=== PATIENT | male | born 1995 ===

== ENCOUNTER 2021-08-15 06:28 | Emergency (ER) | payer OTHER, SELFPAY ==
--- OUTSIDE RECORDS SUMMARY | 2021-08-15 06:31 | XMS REPORT | Continuity of Care Document ---
:1995 Author Organization [facility] t Address 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 Unknown Attending Clinician Unavailable DR CRISPIN Admitting Clinician Unavailable Payers Payer Name Policy Type Policy Number Effective Date Expiration Date Maureen CHÁVEZ II [id number] 2019 00:00:00 Problems Condition Condition Condition Status Onset Resolution Last Treating Co mments Source Name Details Category Date Date Treatment Clinician Date Acute Acute Disease Active 2020-0 Univers nonintract nonintract 2-08 it y of able able 00:00: [place] headache, headache, 00 Medi fareed unspecifie unspecifie Br anch d headache d headache type type Renal Renal Disease Active 2020-0 Univers disease disease 2-08 ity of 00:00: [address] Branch Snoring Snoring Disease Active 2020-0 Univers 2-08 ity of 00:00: [address] Branch Essential Essential Disease Active 2020-0 Uni vers hypertensi hypertensi 2-08 it y of on on 00:00: [place] [address] Medical Branch Morbid Morbid Disease Active 2020-0 Univers obesity obesity 2-08 ity of with BMI with BMI 00:00: [place] of of 00 Medical 40.0-44.9, 40.0-44.9, Br anch adult adult Elevated Elevated Disease Active 2020-0 Unive rs LFTs LFTs 2-08 ity of 00:00: [address] No known No known Disease Unive rs active active ity of problems problems [facility] Allergies, Adverse Reactions, Alerts Allergy Allergy Status Severity Reaction(s) Onset Inactive Treating Comm ents Source Name Type Date Date Clinician NO KNOWN Drug Active Univers ALLERGIE Class ity of S [facility] Social History Social Habit Start Date Stop Date Quantity Comments Source History [facility] [place] Alcohol Std Drinks Medica l Branch History [facility] [place] Alcohol Binge Medical Bra [facility] Sex Assigned [facility] Branch Alcohol intake 2019-11-05 2019-11-05 [facility] 00:00:00 00:00:00 Medical Branch History [facility] 2019-11-02 2019-11-02 1 [place] o f [place] Alcohol Frequency 00:00:00 00:00:00 Medical Branch Smoking Status Start Date Stop Date Source Unknown if ever smoked [facility] Never smoker [facility] Medications Ordered Filled Start Stop Current Ordering Indication Dosage Frequency Signature Comments Components Source Medication Medication Date Date Medication? Clinician (SIG) Name Name ketorolac 2019- No 30mg 30 mg, Unive rs (TORADOL) 12-02 Slow IV ity of injection 18:00: 17:04 Push, [place] 30 mg 00 :00 ONCE, 1 Medical dose, Sat Branch 12/03/19 at 1200, FAIZA
Fa culty member approving Restricted medication : Jose STILL ibuprofen 2019- Yes [id number] 600mg Take 1 U nivers 600 mg 12-02 tablet by ity of tablet 00:00: mouth [place] 00 every 6 Medical (six) Branch hours as needed for Pain (scale 4-6). cephALEXin 2020- No [id number] 500mg Take 1 Univers (KEFLEX) 12-02 [id number] capsule by it y of 500 mg 00:00: 04:59 mouth 3 [place] capsule 00 :00 (three) Medical times Branch daily for 10 days. amLODIPine 2020-0 Yes [id number] Start 1/2 Univers 10 mg 2-07 tab PO ity of tablet 00:00: daily x 1 [place] 00 week. Medical Increase Branch to 1 tab PO daily if persistent ly elevated > 130/80. amLODIPine 2020-0 Yes [id number] Start 1/2 Univers 10 mg 2-07 tab PO ity of tablet 00:00: daily x 1 [place] 00 week. Medical Increase Branch to 1 tab PO daily if persistent ly elevated > 130/80. amLODIPine Yes [id number] Start 1/2 Univers 10 mg 2-07 tab PO ity of tablet 00:00: daily x 1 [place] 00 week. Medical Increase Branch to 1 tab PO daily if persistent ly elevated > 130/80. amLODIPine Yes [id number] Start 1/2 Univers 10 mg 2-07 tab PO ity of tablet 00:00: daily x 1 [place] 00 week. Medical Increase Branch to 1 tab PO daily if persistent ly elevated > 130/80. ketorolac 2020- No [id number] 60mg Uni vers (TORADOL) 11-03 ity of injection 00:30: 00:40 [place] 60 mg 00 :00 [facility] ketorolac 2019- No [id number] 60mg 60 mg, U nivers (TORADOL) 11-03 Intramuscu ity of injection 00:30: 00:40 lar, ONCE, [place] 60 mg 00 :00 1 dose, Medical 11/02/19 Branch at 1845, Routine
family member caretaker approving Restricted medication : SEBASTIAN STARR No known No [facility] Immun[facility] Ordered Filled Immunization Date Status Comments [facility] e Immunization Name Name Influenza Virus 2019-07-05 Completed Universit y of Vaccine 00:00:00 [facility] Influenza Virus 2019-07-05 Completed Universit y of Vaccine 00:00:00 [facility] Influenza Virus 2019-07-05 Completed Universit y of Vaccine 00:00:00 [facility] Influenza Virus 2019-07-05 Completed Universit y of Vaccine 00:00:00 [facility] Vital Signs Vital Name Observation Time Observation Value Comments Source Heart rate 2019-12-03 16:05:00 90 /min [facility] Body temperature 2019-12-03 16:05:00 37.06 Aleja [facility] Respiratory rate 2019-12-03 16:05:00 18 /min [facility] Body height 2019-12-03 16:05:00 165.1 cm [facility] Body weight 2019-12-03 16:05:00 99.791 kg [facility] BMI 2019-12-03 16:05:00 36.61 kg/m2 [facility] Oxygen saturation in 2019-12-03 16:05:00 99 /min University of Arterial blood by [facility] fareed Pulse oximetry Branch Systolic blood 2019-12-03 16:05:00 153 mm[Hg] Univer sity of pressure [place] [facility] Diastolic blood 2019-12-03 16:05:00 111 mm[Hg] Unive rsity of pressure [facility] Branch Systolic blood 2019-11-06 02:02:00 160 mm[Hg] Univer sity of pressure [facility] Branch Diastolic blood 2019-11-06 02:02:00 100 mm[Hg] Unive rsity of pressure [facility] Branch Heart rate 2019-11-04 19:29:00 90 /min Universi ty of [facility] Body temperature 2019-11-04 19:29:00 36.78 Aleja Univ ersity of [facility] Body height 2019-11-04 19:29:00 162.6 cm Universi ty of [place] [facility] [place] Body weight 2019-11-04 19:29:00 106.595 kg Universi ty of [facility] BMI 2019-11-04 19:29:00 40.34 kg/m2 Universi ty of [place] [facility] Oxygen saturation in 2019-11-04 19:29:00 96 /min University of Arterial blood by [facility] Pulse oximetry Branch Systolic blood 2019-11-03 00:13:00 170 mm[Hg] Univer sity of pressure [facility] Diastolic blood 2019-11-03 00:13:00 102 mm[Hg] Unive rsity of pressure [facility] Heart rate 2019-11-03 00:12:00 82 /min Universi ty of [facility] Body temperature 2019-11-03 00:12:00 37.33 Aleja Univ ersity of [facility] Respiratory rate 2019-11-03 00:12:00 18 /min Univ ersity of [facility] Body height 2019-11-03 00:12:00 162.6 cm Universi ty of [place] [facility] Body weight 2019-11-03 00:12:00 107.502 kg Universi ty [facility] [place] [facility] BMI 2019-11-03 00:12:00 40.68 kg/m2 Universi ty of [place] [facility] Oxygen saturation in 2019-11-03 00:12:00 97 /min University of Arterial blood by [facility] Pulse oximetry Branch Procedures Procedure Date / Time Performing Clinician Source Performed XR ANKLE <3 VW RIGHT 2019-12-03 17:20:30 Jose Still [facility] XR FOOT <3 VW RIGHT 2019-12-03 17:20:30 Jose Still [facility] COMP. METABOLIC PANEL 2019-12-03 17:04:00 Jose Still [facility] ([id number]) [facility] CBC WITH DIFFERENTIAL 2019-12-03 17:04:00 Jose Still [facility] CONSENT/REFUSAL FOR 2019-12-03 15:51:32 Doctor Unassigned, No [facility] DIAGNOSIS AND TREATMENT Name [facility] THYROID STIMULATING 2019-11-04 20:02:[address] [facility] HORMONE [facility] COMP. METABOLIC PANEL 2019-11-04 20:02:00 [facility] ([id number]) [facility] CBC WITH DIFFERENTIAL 2019-11-04 20:02:00 Purvi Pelletier [facility] GLYCOSYLATED HEMOGLOBIN 2019-11-04 20:02:00 Purvi Pelletier [facility] (A1C) [facility] ASSIGNMENT OF BENEFITS 2019-11-03 00:01:07 Doctor Unassigned, No [facility] Name [facility] Encounters Start End Encounter Admission Attending Care Care Encounter Source Date/Time Date/Time Type Type Clinicians Facility Department ID 2021-07-25 Emergency [facility] [id number] [facility]-03-[facility] 2020-03-22 Outpatient R [facility] [id number] Univers 08:20:00 08:20:00 [id number] ity [facility] [place] [facility] 2020-03-22 2020-03-22 Outpatient R [facility] [id number] Univers 08:20:00 [facility] 2019-12-16 2019-12-16 Outpatient Nawaf ROA Nawaf [facility] [id number] 04:25:00 07:00:00 MAMADOU Bartona [facility] 2019-12-07 2019-12-07 Outpatient R WAQAS [facility] [id number] Univers 14:20:00 14:20:00 JOO [id number] ity o f [facility] 2019-12-03 2019-12-03 Emergency [place] Still [place] [id number] Univers 10:08:15 12:18:00 Bethany Vero 350.1.13.10 i ty [place] [phone] [facility] [address] [place] 2019-12-03 2019-12-03 Orders Doctor ADOLFO [id number] Univers 00:00:00 00:00:00 Only Unassigned, FADUMO [id number] ity of [place] [facility] 4.2.7.2.686 [place] as [phone] [address] 2019-11-04 2019-11-04 Office Liyah, [facility] [id number] Univers 13:20:30 14:06:30 Visit Purvi Vanegas [facility] [id number] i ty of [place] 4.2.7.2.686 [place] as Professio [phone] Me dical nal [address] [place] [address] 2019-11-02 2019-11-02 Urgent [place] 1.2.840. [id number] Univers 18:07:32 19:04:55 Care Unknown, Attending Health [id number] ity of Surgical 4.2.7.2.686 [place] as Specialti [phone] Me dical es [address] [facility] 2019-11-02 2019-11-02 Orders Doctor ADOLFO [id number] Univers 00:00:00 00:00:00 Only Unassigned, FADUMO [id number] ity of [place] [facility] 4.2.7.2.686 [place] as [phone] [address] Results Test Description Test Time Test Comments Results Result Comments Source CBC WITH DIFFERENTIAL 2019-12-03 17:38:00 Test Item Value Reference Range Interpretation Comme nts WBC (test code = 6690-2) See_Comment [A utomated message] The system which ge nerated this result transmit kaleb reference range: 4.20 - 1 0.70 10*3/?L. The reference r nadine was not used to interpr et this result as normal/abnor mal. RBC (test code = 789-8) See_Comment H [Au tomated message] The system which [employer] nerated this result transmit kaleb reference range: 4.26 - 5 .52 10*6/?L. The reference r nadine was not used to interpr et this result as normal/abnor mal. HGB (test code = 718-7) 17.3 g/dL 12.2-16.4 H HCT (test code = 4544-3) 49.6 % 38.4-49.3 H MCV (test code = 787-2) 85.4 fL 81.7-95.6 MCH (test code = 785-6) 29.8 pg 26.1-32.7 MCHC (test code = 786-4) 34.9 g/dL 31.2-35 RDW-SD (test code = 62932-1) 36.1 fL 38.5-51.6 L RDW-CV (test code = 788-0) 11.8 % 12.1-15.4 L PLT (test code = 777-3) See_Comment [Au tomated message] The system which [employer] nerated this result transmit kaleb reference range: 150 - 32 8 10*3/?L. The reference range was not used to interpret th is result as normal/abnormal . MPV (test code = 30084-8) 10.9 fL 9.8-13 NRBC/100 WBC (test code = See_Comment [ Automated message] The [id number]) system which [employer] nerated this result transmit kaleb reference range: 0.0 - 10 .0 /100 WBCs. The reference r nadine was not used to interpr et this result as normal/abnor mal. NRBC x10^3 (test code = <0.01 See_Comment [Au tomated message] The 6570747803) system which [employer] nerated this result transmit kaleb reference range: 10*3/?L. The reference range was not u sed to interpret this result as normal/abnormal . GRAN MAT (NEUT) % (test code 52.1 % = 770-8) IMM GRAN % (test code = 0.30 % 9723681063) LYMPH % (test code = 736-9) 38.2 % MONO % (test code = 5905-5) 5.8 % EOS % (test code = 713-8) 3.0 % BASO % (test code = 706-2) 0.6 % GRAN MAT x10^3(ANC) (test 4.13 10*3/uL 1.99-6.95 code = 7959695333) IMM GRAN x10^3 (test code = <0.03 0-0.06 2445563620) LYMPH x10^3 (test code = 3.03 10*3/uL 1.09-3.23 731-0) MONO x10^3 (test code = 0.46 10*3/uL 0.36-1.02 742-7) EOS x10^3 (test code = 0.24 10*3/uL 0.06-0.53 711-2) BASO x10^3 (test code = 0.05 10*3/uL 0.01-0.09 704-7) Lab Interpretation (test Abnormal code = 17181-1) [id number]-03 17:33:00 Test Item Value Reference Range Interpretation Comments NA (test code = 141 mmol/L 135-145 0946084391) K (test code = 4.2 mmol/L 3.5-5 5314911082) CL (test code = 104 mmol/L 98-108 6232916623) CO2 TOTAL (test code = 26 mmol/L 23-31 9950047659) AGAP (test code = 2-16 6333691098) BUN (test code = 20 mg/dL 7-23 6425116626) GLUCOSE (test code = 127 mg/dL 70-110 H 9414597781) CREATININE (test code = 1.16 mg/dL 0.6-1.25 0875100064) TOTAL BILI (test code = 0.3 mg/dL 0.1-1.7 2405708926) CALCIUM (test code = 9.5 mg/dL 8.6-10.6 5262033870) T PROTEIN (test code = 8.3 g/dL 6.3-8.2 H 5188665781) ALBUMIN (test code = 4.8 g/dL 3.5-5 5779830166) ALK PHOS (test code = 96 U/L 34-122 8652700333) ALTv (test code = 53 U/L 5-50 H 1742-6) AST(SGOT) (test code = 36 U/L 13-40 2940375063) eGFR Calculation mL/min/1.73m2 (Non-) (test code = 2011779827) eGFR Calculation mL/min/1.73m2 () (test code = 2180818859) RODNEY (test code = RODNEY) Association of Glomerular Filtration Rate (GFR) and Staging of Kidney Disease* + --+ --+ ------+| GFR (mL/min/1.73 m2) ?| With Kidney Damage ?| ?Without Kidney Damage+ --------+ --------+ +| ?>90 ?| ?Stage one ?| ? Normal ?+ ---+ ---+ -------+| ?60-89 ?| ?Stage two ?| ? Decreased GFR ? + --+ --+ ------+| ?30-59 ?| ?Stage three ?| ? Stage three ? + --+ --+ ------+| ?15-29 ?| ?Stage four ? | ? Stage four ?+ ---+ ---+ -------+| ?<15 (or dialysis) ? ?| ?Stage five ? | ? Stage five ?+ ---+ ---+ -------+ *Each stage assumes the associated GFR level has been in effect for at least three months. ?Stages 1 to 5, with or without kidney disease, indicate chronic kidney disease. Notes: Determination of stages one and two (with eGFR >59mL/min/1.73 m2) requires estimation of kidney damage for at least three months as defined by structural or functional abnormalities of the kidney, manifested by either:Pathological abnormalities or Markers of kidney damage (including abnormalities in the composition of the blood or urine or abnormalities in imaging tests). Lab Interpretation Abnormal (test code = 34199-4) [facility] VW [id number] 17:28:55 Soft tissue swelling without an acute bony abnormality. EXAM: XR FOOT <3 VW RIGHT, EXAM: XR ANKLE <3 VW RIGHT HISTORY: pain, swelling COMPARISON: None. FINDINGS: Imaging of the right foot and ankle was obtained. Soft tissue swelling isseen about the ankle and along the dorsum of the foot. No acute fracture ordislocation is seen. Small calcaneal enthesophytes are present. Hammertoedeformities are noted. The ankle mortise is congruent. [facility], Radiant Results Inft User - 12/03/2019 11:29 AM CSTEXAM:XR FOOT <3 VW RIGHT,EXAM: XR ANKLE <3 VW RIGHTHISTORY:pain, swelling COMPARISON:None.FINDINGS: Imaging of the right foot and ankle was obtained. Soft tissue swelling isseen about the ankle andalong the dorsum of the foot. No acute fracture ordislocation is seen. Small calcaneal enthesophytesare present. Hammertoedeformities are noted. The ankle mortise is congruent.IMPRESSIONSoft tissue swelling without an acute bony abnormality.[facility] <3 VW [id number] 17:28:55 Soft tissue swelling without an acute bony abnormality. EXAM: XR FOOT <3 VW RIGHT, EXAM: XR ANKLE <3 VW RIGHT HISTORY: pain, swelling COMPARISON: None. FINDINGS: Imaging of the right foot and ankle was obtained. Soft tissue swelling isseen about the ankle and along the dorsum of the foot. No acute fracture ordislocation is seen. Small calcaneal enthesophytes are present. Hammertoedeformities are noted. The ankle mortise is congruent. [facility], Radiant Results [facility] User - 12/03/2019 11:29 AM CSTEXAM:XR FOOT <3 VW RIGHT,EXAM: XR ANKLE <3 VW RIGHTHISTORY:pain, swelling COMPARISON:None.FINDINGS: Imaging of the right foot and ankle was obtained. Soft tissue swelling isseen about the ankle andalong the dorsum of the foot. No acute fracture ordislocation is seen. Small calcaneal enthesophytesare present. Hammertoedeformities are noted. The ankle mortise is congruent.IMPRESSIONSoft tissue swelling without an acute bony abnormality.[facility] HORMONE 2019-11-04 23:16:00 Test Item Value Reference Range Interpretation Comments TSH (test code = See_Comment [Automated message] [id number]) The system [employer] generated this result transmitted ref erence range: 0.45 - 4 .70 mIU/L. The refe rence range was not u sed to interpret this result as normal/abnor mal. Lab Interpretation (test Normal code = 46036-4) [facility] [id number] 23:16:00 Test Item Value Reference Range Interpretation Comments TSH (test code = See_Comment [Automated message] [id number]) The system [employer] generated this result transmitted ref erence range: 0.45 - 4 .70 mIU/L. The refe rence range was not u sed to interpret this result as normal/abnor mal. Lab Interpretation (test Normal code = 10026-5) [facility] (A1C)2019-11-04 23:15:00 Test Item Value Reference Interpretation Comments Range HGB A1C (test code = See_Comment [Autom ated 4548-4) message] The system which generated this result transmitted reference range : 4.0 - 6.0 % NGSP. The reference range was not used to interpret this result as normal/abnormal . RODNEY (test code = %A1C (NGSP) RODNEY) Interpretation (ADA)4.8-5.6 ? ? Normal or (Non-Diabetic Range)5.7-6.4 ? ? Increased Risk (Pre-Diabetic)>6.5 ?Diabetes Indicated Lab Interpretation Normal (test code = 85946-5) [facility] (A1C)2019-11-04 23:15:00 Test Item Value Reference Interpretation Comments Range HGB A1C (test code = See_Comment [Autom ated 4548-4) message] The system which generated this result transmitted reference range : 4.0 - 6.0 % NGSP. The reference range was not used to interpret this result as normal/abnormal . RODNEY (test code = %A1C (NGSP) RODNEY) Interpretation (ADA)4.8-5.6 ? ? Normal or (Non-Diabetic Range)5.7-6.4 ? ? Increased Risk (Pre-Diabetic)>6.5 ?Diabetes Indicated Lab Interpretation Normal (test code = 08298-6) [facility] WITH [id number] 23:10:00 Test Item Value Reference Range Interpretation Comments WBC (test code = See_Comment [Automated 6690-2) message] The sy stem which generated this result transmitted reference range : 4.20 - 10.70 10*3/?L. The reference range was not used to interpret this result as normal/abnormal . RBC (test code = See_Comment H [Automated 789-8) message] The sy stem which generated this result transmitted reference range : 4.26 - 5.52 10*6/?L. The reference range was not used to interpret this result as normal/abnormal . HGB (test code = 16.7 g/dL 12.2-16.4 H 718-7) HCT (test code = 49.6 % 38.4-49.3 H 4544-3) MCV (test code = 86.7 fL 81.7-95.6 787-2) MCH (test code = 29.2 pg 26.1-32.7 785-6) MCHC (test code = 33.7 g/dL 31.2-35 786-4) RDW-SD (test code = 38.5 fL 38.5-51.6 72425-4) RDW-CV (test code = 12.1 % 12.1-15.4 788-0) PLT (test code = See_Comment [Automated 777-3) message] The sy stem which generated this result transmitted reference range : 150 - 328 10*3/ ?L. The reference r nadine was not used to interpret this result as normal/abnormal . MPV (test code = 11.6 fL 9.8-13 42470-2) NRBC/100 WBC (test See_Comment [Automat ed code = 2414399235) message] The system which generated this result transmitted reference range : 0.0 - 10.0 /100 WBCs. The refer ence range was not u sed to interpret th is result as normal/abnormal . NRBC x10^3 (test code <0.01 See_Comment [Auto mated = 4715624171) message] The s ystem which generated this result transmitted reference range : 10*3/?L. The reference range was not used to interpret this result as normal/abnormal . GRAN MAT (NEUT) % 50.7 % (test code = 770-8) IMM GRAN % (test code 0.20 % = 0804508138) LYMPH % (test code = 41.8 % 736-9) MONO % (test code = 4.5 % 5905-5) EOS % (test code = 2.1 % 713-8) BASO % (test code = 0.7 % 706-2) GRAN MAT x10^3(ANC) 4.40 10*3/uL 1.99-6.95 (test code = 6156707698) IMM GRAN x10^3 (test <0.03 0-0.06 code = 7394378274) LYMPH x10^3 (test code 3.63 10*3/uL 1.09-3.23 H = 731-0) MONO x10^3 (test code 0.39 10*3/uL 0.36-1.02 = 742-7) EOS x10^3 (test code = 0.18 10*3/uL 0.06-0.53 711-2) BASO x10^3 (test code 0.06 10*3/uL 0.01-0.09 = 704-7) Lab Interpretation Abnormal (test code = 47472-6) [facility] WITH [id number] 23:10:00 Test Item Value Reference Range Interpretation Comments WBC (test code = See_Comment [Automated 6690-2) message] The sy stem which generated this result transmitted reference range : 4.20 - 10.70 10*3/?L. The reference range was not used to interpret this result as normal/abnormal . RBC (test code = See_Comment H [Automated 789-8) message] The sy stem which generated this result transmitted reference range : 4.26 - 5.52 10*6/?L. The reference range was not used to interpret this result as normal/abnormal . HGB (test code = 16.7 g/dL 12.2-16.4 H 718-7) HCT (test code = 49.6 % 38.4-49.3 H 4544-3) MCV (test code = 86.7 fL 81.7-95.6 787-2) MCH (test code = 29.2 pg 26.1-32.7 785-6) MCHC (test code = 33.7 g/dL 31.2-35 786-4) RDW-SD (test code = 38.5 fL 38.5-51.6 81742-8) RDW-CV (test code = 12.1 % 12.1-15.4 788-0) PLT (test code = See_Comment [Automated 777-3) message] The sy stem which generated this result transmitted reference range : 150 - 328 10*3/ ?L. The reference r nadine was not used to interpret this result as normal/abnormal . MPV (test code = 11.6 fL 9.8-13 86145-9) NRBC/100 WBC (test See_Comment [Automat ed code = 9389611563) message] The system which generated this result transmitted reference range : 0.0 - 10.0 /100 WBCs. The refer ence range was not u sed to interpret th is result as normal/abnormal . NRBC x10^3 (test code <0.01 See_Comment [Auto mated = 4543854398) message] The s ystem which generated this result transmitted reference range : 10*3/?L. The reference range was not used to interpret this result as normal/abnormal . GRAN MAT (NEUT) % 50.7 % (test code = 770-8) IMM GRAN % (test code 0.20 % = 2924108672) LYMPH % (test code = 41.8 % 736-9) MONO % (test code = 4.5 % 5905-5) EOS % (test code = 2.1 % 713-8) BASO % (test code = 0.7 % 706-2) GRAN MAT x10^3(ANC) 4.40 10*3/uL 1.99-6.95 (test code = 2140196158) IMM GRAN x10^3 (test <0.03 0-0.06 code = 3106344797) LYMPH x10^3 (test code 3.63 10*3/uL 1.09-3.23 H = 731-0) MONO x10^3 (test code 0.39 10*3/uL 0.36-1.02 = 742-7) EOS x10^3 (test code = 0.18 10*3/uL 0.06-0.53 711-2) BASO x10^3 (test code 0.06 10*3/uL 0.01-0.09 = 704-7) Lab Interpretation Abnormal (test code = 86996-6) [facility]. METABOLIC PANEL ([id number])2019-11-04 22:46:00 Test Item Value Reference Range Interpretation Comments NA (test code = 142 mmol/L 135-145 7655685533) K (test code = 4.4 mmol/L 3.5-5 6591971851) CL (test code = 103 mmol/L 98-108 6036783066) CO2 TOTAL (test code = 30 mmol/L 23-31 8215896840) AGAP (test code = 2-16 8127060171) BUN (test code = 23 mg/dL 7-23 5961724694) GLUCOSE (test code = 105 mg/dL 70-110 9756630016) CREATININE (test code = 1.21 mg/dL 0.6-1.25 1838183787) TOTAL BILI (test code = 0.7 mg/dL 0.1-1.1 7688012941) CALCIUM (test code = 10.1 mg/dL 8.6-10.6 4870594186) T PROTEIN (test code = 7.6 g/dL 6.3-8.2 6596937057) ALBUMIN (test code = 4.8 g/dL 3.5-5 6534958382) ALK PHOS (test code = 86 U/L 34-122 0000609879) ALTv (test code = 69 U/L 5-50 H 1742-6) AST(SGOT) (test code = 49 U/L 13-40 H 9344926222) eGFR Calculation mL/min/1.73m2 (Non-) (test code = 9318928132) eGFR Calculation mL/min/1.73m2 () (test code = 2252636313) RODNEY (test code = RODNEY) Association of Glomerular Filtration Rate (GFR) and Staging of Kidney Disease* + --+ --+ ------+| GFR (mL/min/1.73 m2) ?| With Kidney Damage ?| ?Without Kidney Damage+ --------+ --------+ +| ?>90 ?| ?Stage one ?| ? Normal ?+ ---+ ---+ -------+| ?60-89 ?| ?Stage two ?| ? Decreased GFR ? + --+ --+ ------+| ?30-59 ?| ?Stage three ?| ? Stage three ? + --+ --+ ------+| ?15-29 ?| ?Stage four ? | ? Stage four ?+ ---+ ---+ -------+| ?<15 (or dialysis) ? ?| ?Stage five ? | ? Stage five ?+ ---+ ---+ -------+ *Each stage assumes the associated GFR level has been in effect for at least three months. ?Stages 1 to 5, with or without kidney disease, indicate chronic kidney disease. Notes: Determination of stages one and two (with eGFR >59mL/min/1.73 m2) requires estimation of kidney damage for at least three months as defined by structural or functional abnormalities of the kidney, manifested by either:Pathological abnormalities or Markers of kidney damage (including abnormalities in the composition of the blood or urine or abnormalities in imaging tests). Lab Interpretation Abnormal (test code = 37041-7) [facility]OL[facility] ([id number])2019-11-04 22:46:00 Test Item Value Reference Range Interpretation Comments NA (test code = 142 mmol/L 135-145 9809670935) K (test code = 4.4 mmol/L 3.5-5 9776949544) CL (test code = 103 mmol/L 98-108 8447932533) CO2 TOTAL (test code = 30 mmol/L 23-31 7933172592) AGAP (test code = 2-16 0051682643) BUN (test code = 23 mg/dL 7-23 9047732427) GLUCOSE (test code = 105 mg/dL 70-110 3024545441) CREATININE (test code = 1.21 mg/dL 0.6-1.25 3630055290) TOTAL BILI (test code = 0.7 mg/dL 0.1-1.2 8429229046) CALCIUM (test code = 10.1 mg/dL 8.6-10.6 7800429569) T PROTEIN (test code = 7.6 g/dL 6.3-8.2 5467076162) ALBUMIN (test code = 4.8 g/dL 3.5-5 5116565454) ALK PHOS (test code = 86 U/L 34-122 2008632463) ALTv (test code = 69 U/L 5-50 H 1742-6) AST(SGOT) (test code = 49 U/L 13-40 H 0886831281) eGFR Calculation mL/min/1.73m2 (Non-) (test code = 1065733155) eGFR Calculation mL/min/1.73m2 () (test code = 2214322126) RODNEY (test code = RODNEY) Association of Glomerular Filtration Rate (GFR) and Staging of Kidney Disease* + --+ --+ ------+| GFR (mL/min/1.73 m2) ?| With Kidney Damage ?| ?Without Kidney Damage+ --------+ --------+ +| ?>90 ?| ?Stage one ?| ? Normal ?+ ---+ ---+ -------+| ?60-89 ?| ?Stage two ?| ? Decreased GFR ? + --+ --+ ------+| ?30-59 ?| ?Stage three ?| ? Stage three ? + --+ --+ ------+| ?15-29 ?| ?Stage four ? | ? Stage four ?+ ---+ ---+ -------+| ?<15 (or dialysis) ? ?| ?Stage five ? | ? Stage five ?+ ---+ ---+ -------+ *Each stage assumes the associated GFR level has been in effect for at least three months. ?Stages 1 to 5, with or without kidney disease, indicate chronic kidney disease. Notes: Determination of stages one and two (with eGFR >59mL/min/1.73 m2) requires estimation of kidney damage for at least three months as defined by structural or functional abnormalities of the kidney, manifested by either:Pathological abnormalities or Markers of kidney damage (including abnormalities in the composition of the blood or urine or abnormalities in imaging tests). Lab Interpretation Abnormal (test code = 86283-6) [facility]"
[2021-08-15] MEDS ORDERED: METHYLPREDNISOLONE 125 MG INJ ONE (07:37)
[2021-08-15] MEDS ORDERED: HYDROCODONE/APAP 10/325 TAB ONE (07:38)
[2021-08-15] MEDS ORDERED: KETOROLAC 30 MG/ML INJ ONE (07:39)
[2021-08-15] MEDS ORDERED: NA CHLORIDE 0.9% 1,000 ML ONE (07:39)
[2021-08-15 07:52] LABS: Urine Blood 1+ (Negative); Urine Glucose Negative (Negative); Urine Protein 3+ (Negative); Urine Specific Gravity 1.025 (1.005-1.030)
--- NOTE | 2021-08-15 08:29 | RAD REPORT ---
EXAM DESCRIPTION: CT - Spine Lumbar Wo Con - 08/15/2021 7:25 am CLINICAL HISTORY: Radiculopathy. LOWER BACK PAIN COMPARISON: No comparisons TECHNIQUE: Axial noncontrast CT imaging of the lumbar spine was performed with coronal and sagittal re-formatted images. All CT scans are performed using dose optimization technique as appropriate and may include automated exposure control or mA/KV adjustment according to patient size. FINDINGS: No acute lumbar spine fracture seen. No aggressive marrow pattern or malalignment. Paraspinal tissues are normal in thickness. No paraspinal abscess or hematoma seen. Partially calcified disc bulge is present that L2-3. This likely narrows the right exit foramen. Smal l endplate osteophyte with mild posterior disc bulge and bilateral facet hypertrophy is noted at L5-S 1. IMPRESSION: No acute lumbar spine abnormality. Moderate lumbar spondylosis as detailed. Followup MR imaging of the lumbar spine could be obtained fo r further evaluation.
--- NOTE | 2021-08-15 08:57 | ER ---
Nurse's Notes [facility] Name: Abhinav Haines Age: 25 yrs Sex: Male : 1995 Arrival Date: 08/15/2021 Time: 06:34 Bed 18 [facility] MD: Diagnosis: Low back pain;Sciatica, left side Presentation: 08/15 06:52 Chief complaint: Patient states: he started having lower back pain yesterday and now it bb is shooting down his leg and he is unable to get comfortable. Coronavirus screen: At this time, the client does not indicate any symptoms associated with coronavirus-19. Ebola Screen: No symptoms or risks identified at this time. Initial Sepsis Screen: Does the patient meet any 2 criteria? No. Patient's initial sepsis screen is negative. Does the patient have a suspected source of infection? No. Patient's initial sepsis screen is negative. Risk Assessment: Do you want to hurt yourself or someone else? Patient reports no desire to harm self or others. Onset of symptoms was August 14, 2021. 06:52 Method Of Arrival: Ambulatory bb 06:52 Acuity: JOAN 3 bb Historical: - Allergies: 06:56 No Known Allergies; bb - Home Meds: 06:56 None [Active]; bb - PMHx: 06:56 None; bb - PSHx: 06:56 foot surgery; bb - Immunization history:: Adult Immunizations up to date, Client reports receiving the 2nd dose of the Covid vaccine. - Social history:: Smoking status: Patient denies any tobacco usage or history of. Patient uses alcohol, occasionally. Patient/guardian denies using street drugs. Screenin:45 Abuse screen: Denies threats or abuse. sl2 07:45 Nutritional screening: No deficits noted. Tuberculosis screening: No symptoms or risk sl2 factors identified. Fall Risk None identified. No fall in past 12 months (0 pts). No secondary diagnosis (0 pts). IV access (20 points). Ambulatory Aid- None/Bed Rest/Nurse Assist (0 pts). Gait- Normal/Bed Rest/Wheelchair (0 pts) Mental Status- Oriented to own ability (0 pts). [place] Fall Scale indicates No Risk (0-24 pts). Assessment: 07:10 General: Appears. sl2 07:10 General: Appears uncomfortable, well groomed, well developed, Behavior is calm, sl2 cooperative, appropriate for age. 07:10 Pain: Complains of pain in lumbar area and left leg and left quadriceps Pain radiates sl2 to left leg Pain currently is 4 out of 10 on a pain scale. at worst was 10 out of 10 on a pain scale. level that patient reports is acceptable is 2 out of 10 on a pain scale. Quality of pain is described as sharp, shooting. Neuro: No deficits noted. Cardiovascular: No deficits noted. Reports. Respiratory: No deficits noted. Reports Airway is patent Trachea midline Respiratory effort is even, unlabored, Respiratory pattern is regular, symmetrical, Breath sounds are clear bilaterally. GI: No deficits noted. No signs and/or symptoms were reported involving the gastrointestinal system. : No deficits noted. No signs and/or symptoms were reported regarding the genitourinary system. EENT: No deficits noted. No signs and/or symptoms were reported regarding the EENT system. Derm: No deficits noted. No signs and/or symptoms reported regarding the dermatologic system. Musculoskeletal: Reports pain in lumbar area and left leg and left quadriceps Denies weakness in lumbar area and left leg and left quadriceps numbness in, lumbar area and left leg and left quadriceps. 09:01 Pain: Pain currently is 3 out of 10 on a pain scale. sl2 Vital Signs: 06:52 BP 147 / 95; Pulse 123; Resp 18 S; Temp 99.7(O); Pulse Ox 96% on R/A; Weight 117.93 kg bb (R); Height 5 ft. 5 in. (165.10 cm) (R); Pain 10/10; 07:40 BP 152 / 90; Pulse 105; Resp 18; Pulse Ox 99% on R/A; sl2 08:58 BP 150 / 88; Pulse 97; Resp 18; Temp 98.6; Pulse Ox 97% on R/A; sl2 06:52 Body Mass Index 43.27 (117.93 kg, 165.10 cm) bb ED Course: 06:34 Patient arrived in ED. bp1 06:46 Andrei Hamilton MD is Attending Physician. kdr 06:56 Triage completed. bb 06:56 Arm band placed on Patient placed in an exam room, on a stretcher, on pulse oximetry. bb 07:18 Patient moved to radiology. sl2 07:25 CT Lumbar Spine Wo Con In Process Unspecified. EDMS 07:28 Adrienne Edward, RN is Primary Nurse. sl2 07:29 Patient moved back from radiology. sl2 07:45 Patient has correct armband on for positive identification. Bed in low position. Call sl2 light in reach. Side rails up X 1. Adult w/ patient. 07:45 No provider procedures requiring assistance completed. Inserted saline lock: 20 gauge sl2 in left antecubital area, using aseptic technique. 09:11 IV discontinued, intact, bleeding controlled, No redness/swelling at site. Pressure sl2 dressing applied. Administered Medications: 07:33 Drug: NS 0.9% 1000 ml Route: IV; Rate: 1 bolus; Site: left antecubital; sl2 09:04 Follow up: Response: No adverse reaction; IV Status: Completed infusion; IV Intake: sl2 1000ml 07:33 Drug: [place] (HYDROcodone-acetaminophen) 10 mg-325 mg 1 tabs Route: PO; sl2 09:03 Follow up: Response: No adverse reaction; Pain is decreased sl2 07:34 Drug: Ketorolac 15 mg Route: IVP; Site: left antecubital; sl2 09:04 Follow up: Response: No adverse reaction; Pain is decreased sl2 07:38 Drug: SOLU-Medrol (methylPrednisoLONE) 125 mg Route: IVP; Site: left antecubital; sl2 09:04 Follow up: Response: No adverse reaction; Marked relief of symptoms; Pain is decreased sl2 Intake: 09:04 IV: 1000ml; Total: 1000ml. sl2 Outcome: 08:57 Discharge ordered by . kdr 09:10 Discharged to home ambulatory. sl2 09:10 Discharged to home with family. 09:10 Condition: stable 09:10 Discharge instructions given to patient, family, Instructed on discharge instructions, follow up and referral plans. medication usage, Demonstrated understanding of instructions, follow-up care, medications, Prescriptions given X 3. 09:15 Patient left the ED. sl2 Signatures: Dispatcher [employer] EDDE Andrei Hamilton MD MD kdr Ballard, Brenda, RN RN Linda Jane Sophia, RN RN sl2
--- NOTE | 2021-08-15 08:57 | EDPHYS ---
Physician Documentation [facility] Name: Abhinav Haines Age: 25 yrs Sex: Male : 1995 Arrival Date: 08/15/2021 Time: 06:34 Bed 18 Private MD: ED Physician Anderi Hamilton HPI: 08/15 07:41 This 25 yrs old Male presents to ER via Ambulatory with complaints of Low Back kdr Pain, Leg Pain. 07:41 The patient presents with pain that is acute, with no known mechanism of injury. The kdr symptoms are located in the low back. The pain radiates to the left quadriceps. The problem was sustained without known cause, from unknown cause. Onset: The symptoms/episode began/occurred gradually, yesterday. Modifying factors: The patient symptoms are alleviated by Positional - laying on right side. Associated signs and symptoms: The patient has no apparent associated signs or symptoms. Severity of symptoms: At their worst the symptoms were mild, just prior to arrival, in the emergency department the symptoms are unchanged. The patient has not experienced similar symptoms in the past. The patient has not recently seen a physician. Historical: - Allergies: 06:56 No Known Allergies; bb - Home Meds: 06:56 None [Active]; bb - PMHx: 06:56 None; bb - PSHx: 06:56 foot surgery; bb - Immunization history:: Adult Immunizations up to date, Client reports receiving the 2nd dose of the Covid vaccine. - Social history:: Smoking status: Patient denies any tobacco usage or history of. Patient uses alcohol, occasionally. Patient/guardian denies using street drugs. ROS: 07:41 Constitutional: Negative for fever, chills, and weight loss, Eyes: Negative for injury, kdr pain, redness, and discharge, ENT: Negative for injury, pain, and discharge, Neck: Negative for injury, pain, and swelling, Cardiovascular: Negative for chest pain, palpitations, and edema, Respiratory: Negative for shortness of breath, cough, wheezing, and pleuritic chest pain, Abdomen/GI: Negative for abdominal pain, nausea, vomiting, diarrhea, and constipation, : Negative for injury, bleeding, discharge, and swelling, MS/Extremity: Negative for injury and deformity, Skin: Negative for injury, rash, and discoloration, Psych: Negative for depression, anxiety, suicide ideation, homicidal ideation, and hallucinations, Allergy/Immunology: Negative for hives, rash, and allergies, Endocrine: Negative for neck swelling, polydipsia, polyuria, polyphagia, and marked weight changes, Hematologic/Lymphatic: Negative for swollen nodes, abnormal bleeding, and unusual bruising. 07:41 Back: Positive for pain at rest, pain with movement, of the lumbar area, Low back and left buttock, left upper thigh consistent with sciatic nerve distribution. Exam: 07:41 Constitutional: This is a well developed, well nourished patient who is awake, alert, kdr and in no acute distress. Head/Face: Normocephalic, atraumatic. Eyes: Pupils equal round and reactive to light, extra-ocular motions intact. Lids and lashes normal. Conjunctiva and sclera are non-icteric and not injected. Cornea within normal limits. Periorbital areas with no swelling, redness, or edema. Neck: Trachea midline, no thyromegaly or masses palpated, and no cervical lymphadenopathy. Supple, full range of motion without nuchal rigidity, or vertebral point tenderness. No Meningismus. Chest/axilla: Normal chest wall appearance and motion. Nontender with no deformity. No lesions are appreciated. Cardiovascular: Regular rate and rhythm with a normal S1 and S2. No gallops, murmurs, or rubs. Normal PMI, no JVD. No pulse deficits. Respiratory: Lungs have equal breath sounds bilaterally, clear to auscultation and percussion. No rales, rhonchi or wheezes noted. No increased work of breathing, no retractions or nasal flaring. Abdomen/GI: Soft, non-tender, with normal bowel sounds. No distension or tympany. No guarding or rebound. No evidence of tenderness throughout. Skin: Warm, dry with normal turgor. Normal color with no rashes, no lesions, and no evidence of cellulitis. MS/ Extremity: Pulses equal, no cyanosis. Neurovascular intact. Full, normal range of motion. Psych: Awake, alert, with orientation to person, place and time. Behavior, mood, and affect are within normal limits. 07:41 Back: pain, that is moderate, of the lumbar area, ROM is painful, with all movement, normal spinal alignment noted. Vital Signs: 06:52 BP 147 / 95; Pulse 123; Resp 18 S; Temp 99.7(O); Pulse Ox 96% on R/A; Weight 117.93 kg bb (R); Height 5 ft. 5 in. (165.10 cm) (R); Pain 10/10; 07:40 BP 152 / 90; Pulse 105; Resp 18; Pulse Ox 99% on R/A; sl2 08:58 BP 150 / 88; Pulse 97; Resp 18; Temp 98.6; Pulse Ox 97% on R/A; sl2 06:52 Body Mass Index 43.27 (117.93 kg, 165.10 cm) bb MDM: 08:57 Patient medically screened. kdr 17:23 Data reviewed: vital signs, nurses notes, lab test result(s), radiologic studies. kdr Counseling: I had a detailed discussion with the patient and/or guardian regarding: the historical points, exam findings, and any diagnostic results supporting the discharge/admit diagnosis, lab results, radiology results, the need for outpatient follow up. 08/15 07:52 Order name: Urine Dipstick-Ancillary; Complete Time: 08:46 EDMS 08/15 07:08 Order name: CT Lumbar Spine Wo Con; Complete Time: 08:46 kdr 08/15 07:08 Order name: Urine Dipstick-Ancillary (obtain specimen); Complete Time: 08:08 kdr Administered Medications: 07:33 Drug: NS 0.9% 1000 ml Route: IV; Rate: 1 bolus; Site: left antecubital; sl2 09:04 Follow up: Response: No adverse reaction; IV Status: Completed infusion; IV Intake: sl2 1000ml 07:33 Drug: [place] (HYDROcodone-acetaminophen) 10 mg-325 mg 1 tabs Route: PO; sl2 09:03 Follow up: Response: No adverse reaction; Pain is decreased sl2 07:34 Drug: Ketorolac 15 mg Route: IVP; Site: left antecubital; sl2 09:04 Follow up: Response: No adverse reaction; Pain is decreased sl2 07:38 Drug: SOLU-Medrol (methylPrednisoLONE) 125 mg Route: IVP; Site: left antecubital; sl2 09:04 Follow up: Response: No adverse reaction; Marked relief of symptoms; Pain is decreased sl2 Disposition Summary: 08/15/21 08:57 Discharge Ordered Location: Home kdr Problem: new kdr Symptoms: have improved kdr Condition: Stable kdr Diagnosis - Low back pain kdr - Sciatica, left side kdr Followup: kdr - With: Private Physician - When: 2 - 3 days - Reason: If symptoms return, Further diagnostic work-up, Recheck today's complaints, Continuance of care, Re-evaluation by your physician Discharge Instructions: - Discharge Summary Sheet kdr - Acute Back Pain, Adult kdr - Musculoskeletal Pain kdr - Sciatica kdr Forms: - Medication Reconciliation Form kdr - Thank You Letter kdr - Prescription Opioid Use kdr - Work release form aa5 Prescriptions: - methocarbamol 750 mg Oral tablet - take 1 tablet by ORAL route 4 times per day As needed; 20 tablet; Refills: 0, kdr Product Selection Permitted - Tramadol 50 mg Oral Tablet - take 1 tablet by ORAL route every 8 hours as needed; 12 tablet; Refills: 0, kdr Product Selection Permitted - Medrol (Arian) 4 mg Oral Tablets, Dose Pack - take 1 tablet by ORAL route as directed - follow package instructions; 1 kdr packet; Refills: 0, Product Selection Permitted Signatures: Dispatcher [employer] Andrei Stout MD MD kdr Yane Ballesteros, RN RN Adrienne Heller RN RN sl2
[2021-08-15 09:37] VITALS: BP 150/88; TEMP 98.6; O2SAT 97
== END 2021-08-15 09:15 | disposition home or self-care (01) ==
LOC: ER 06:28
DX: M54.32 Sciatica, left side (principal)
CPT/HCPCS: 72131; 81003; 96361; 96374; 96375; 99284; J2930; J7030

== ENCOUNTER 2021-09-01 19:54 | Emergency (ER) | payer OTHER, SELFPAY ==
--- OUTSIDE RECORDS SUMMARY | 2021-09-01 19:58 | XMS REPORT | Continuity of Care Document ---
:1995 Author Organization [facility] t Address [address] [place] [address] Care Team Providers Name Role Phone UMER, A Primary Care Physician Unavailable DANI Attending Clinician Unavailable UMER, A Attending Clinician Unavailable Umer PAGuilherme Attending Clinician Lab, - Db Attending Clinician Unavailable Doctor Unassigned, Name Attending Clinician Unavailable DR CRISPIN Attending Clinician Unavailable WAQAS Attending Clinician Unavailable Triny Lozano Attending Clinician TRINY STILL Attending Clinician Unavailable Sal STRAIN TECHNICIAN Attending Clinician Unknown Attending Clinician Unavailable DR CRISPIN Admitting Clinician Unavailable TRINY STILL Admitting Clinician Unavailable Payers Payer Name Policy Type Policy Number Effective Date Expiration Date [facility] [id number] 2021 PPO 00:00:00 Problems Condition Condition Condition Status Onset Resolution Last Treating Co mments Source Name Details Category Date Date Treatment Clinician Date Acute Acute Disease Active Univers nonintract nonintract 2-08 it y of able able 00:00: [place] headache, headache, 00 Medi fareed unspecifie unspecifie Br anch d headache d headache type type Elevated Elevated Disease Active Unive rs LFTs LFTs 2-08 ity of 00:00: [place] [facility] Acute Acute Disease Active Univers nonintract nonintract 2-08 it y of able able 00:00: [place] headache, headache, 00 Medi fareed unspecifie unspecifie Br anch d headache d headache type type Renal Renal Disease Active Univers disease disease 2-08 ity of 00:00: [place] [facility] Snoring Snoring Disease Active 2020 Univers 2-08 ity of 00:00: [place] [facility] Essential Essential Disease Active Uni vers hypertensi hypertensi 2-08 it y of on on 00:00: [place] [facility] Morbid Morbid Disease Active Univers obesity obesity 2-08 ity of with BMI with BMI 00:00: [place] 00 Medical 40.0-44.9, 40.0-44.9, Br anch adult adult Elevated Elevated Disease Active Unive rs LFTs LFTs 2-08 ity of 00:00: [place] [facility] No known No known Disease Unive rs active active ity of problems problems [facility] Allergies, Adverse Reactions, Alerts Allergy Allergy Status Severity Reaction(s) Onset Inactive Treating Comm ents Source Name Type Date Date Clinician NO KNOWN Drug Active Univers ALLERGIE Class ity of S [facility] Social History Social Habit Start Date Stop Date Quantity Comments Source History SDOH University o f Alcohol Std [place] [facility] Drinks [facility] History SDAR University o f Alcohol Comment [place] [facility] Exposure to Not sure [facility] SARS-CoV-2 [place] [facility] (event) Branch History [facility] University o f Alcohol Binge [place] [facility] al [facility] Alcohol intake 2021-08-16 2021-08-16 Lifetime University of 00:00:00 00:00:00 non-drinker [place] [facility] (finding) Branch History SDOH 2019-11-03 2019-11-03 1 University o f Alcohol Frequency 00:00:00 00:00:00 [facility] edical Branch Tobacco use and 2019-11-02 2019-11-02 Never used Universit y of exposure 00:00:00 00:00:00 [facility] Sex Ass[birth year] At [birth year] Universit y of 00:00:00 00:00:00 [facility] Smoking Status Start Date Stop Date Source Unknown if ever smoked Universit y of [place] [facility] [place] Never smoker [facility] Branch Medications Ordered Filled Start Stop Current Ordering Indication Dosage Frequency Signature Comments Components Source Medication Medication Date Date Medication? Clinician (SIG) Name Name amLODIPine 2020-09 Yes [id number] 5mg Take 1 U nivers 5 mg tablet 1-19 tablet by ity of 00:00: mouth [place] 00 daily. Medical Branch amLODIPine 2020-09 Yes [id number] 5mg Take 1 U nivers 5 mg tablet 1-19 tablet by ity of 00:00: mouth [place] 00 daily. Medical Branch amLODIPine 2020-09 Yes [id number] 5mg Take 1 U nivers 5 mg tablet 1-19 tablet by ity of 00:00: mouth [place] 00 daily. Medical Branch amLODIPine 2020-09 Yes [id number] 5mg Take 1 U nivers 5 mg tablet 1-19 tablet by ity of 00:00: mouth [place] 00 daily. Medical Branch ketorolac 2019- No 30mg 30 mg, Unive rs (TORADOL) 12-02 03-07 Slow IV ity of injection 18:00: 17:04 Push, [place] 30 mg 00 :00 ONCE, 1 Medical dose, Sat Branch 12/03/19 at 1200, FAIZA
Fa culty member approving Restricted medication : Jose STILL ibuprofen Yes [id number] 600mg Take 1 U nivers 600 mg 3-07 tablet by ity of tablet 00:00: mouth [place] 00 every 6 Medical (six) Branch hours as needed for Pain (scale 4-6). ibuprofen Yes [id number] 600mg Take 1 U nivers 600 mg 3-07 tablet by ity of tablet 00:00: mouth [place] 00 every 6 Medical (six) Branch hours as needed for Pain (scale 4-6). ibuprofen 2020- No [id number] 600mg Take 1 Univers 600 mg 3-04 07-19 tablet by ity of tablet 00:00: 00:00 mouth [place] 00 :00 every 6 Medical (six) Branch hours as needed for Pain (scale 4-6). cephALEXin 2020- No [id number] 500mg Take 1 Univers (KEFLEX) 3- 03-18 [id number] capsule by it y of 500 mg 00:00: 04:59 mouth 3 [place] capsule 00 :00 (three) Medical times Branch daily for 10 days. amLODIPine 2019- Yes [id number] Start 1/2 Univers 10 mg 2-07 tab PO ity of tablet 00:00: daily x 1 [place] 00 week. Medical Increase Branch to 1 tab PO daily if persistent ly elevated > 130/80. amLODIPine Yes [id number] Start 1/2 Univers 10 mg 2-07 tab PO ity of tablet 00:00: daily x 1 [place] 00 week. Medical Increase Branch to 1 tab PO daily if persistent ly elevated > 130/80. amLODIPine 2020 Yes [id number] Start 1/2 Univers 10 mg 2-07 tab PO ity of tablet 00:00: daily x 1 [place] 00 week. Medical Increase Branch to 1 tab PO daily if persistent ly elevated > 130/80. amLODIPine 2020 Yes [id number] Start 1/2 Univers 10 mg 2-07 tab PO ity of tablet 00:00: daily x 1 [place] 00 week. Medical Increase Branch to 1 tab PO daily if persistent ly elevated > 130/80. amLODIPine Yes [id number] Start 1/2 Univers 10 mg 2-07 tab PO ity of tablet 00:00: daily x 1 [place] 00 week. Medical Increase Branch to 1 tab PO daily if persistent ly elevated > 130/80. amLODIPine 2020- No [id number] Start 1/2 Univers 10 mg 2- 11-19 tab PO ity of tablet 00:00: 00:00 daily x 1 [place] 00 :00 week. Medical Increase Branch to 1 tab PO daily if persistent ly elevated > 130/80. ketorolac 2020- No [id number] 60mg Uni vers (TORADOL) 11-03- ity of injection 00:30: 00:40 [place] 60 mg 00 :00 [facility] ketorolac 2020- No [id number] 60mg 60 mg, U nivers (TORADOL) 11-03- Intramuscu ity of injection 00:30: 00:40 [place], ONCE, [place] 60 mg 00 :00 1 dose, Medical 11/02/19 Branch at 1845, Routine
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 faculty member approving Restricted medication : SEBASTIAN STARR No known No Univers medications ity of [facility] Immunizations Ordered Filled Immunization Date Status Comments [facility] e Immunization Name Name Influenza Virus 2019-07-05 Completed Universit y of Vaccine 00:00:00 [facility] Influenza Virus 2019-07-05 Completed Universit y of Vaccine 00:00:00 [facility] Influenza Virus 2019-07-05 Completed Universit y of Vaccine 00:00:00 [facility] Influenza Virus 2019-07-05 Completed Universit y of Vaccine 00:00:00 [facility] Influenza Virus 2019-07-05 Completed Universit y of Vaccine 00:00:00 [facility] Influenza Virus 2019-07-05 Completed Universit y of Vaccine 00:00:00 [facility] Influenza Virus 2019-07-05 Completed Universit y of Vaccine 00:00:00 [facility] Influenza Virus 2019-07-05 Completed Universit y of Vaccine 00:00:00 [facility] Influenza Virus 2019-07-05 Completed Universit y of Vaccine 00:00:00 [facility] Vital Signs Vital Name Observation Time Observation Value Comments Source Systolic blood 2021-08-16 17:20:00 150 mm[Hg] Univer sity of pressure [facility] Diastolic blood 2021-08-16 17:20:00 90 mm[Hg] Unive rsity of [facility] Heart rate 2021-08-16 17:19:00 80 /min Universi ty of [facility] Body temperature 2021-08-16 17:19:00 36.72 Aleja [facility] ersity of [facility] Body height 2021-08-16 17:19:00 165.1 cm Universi ty of [facility] Body weight 2021-08-16 17:19:00 109.317 kg Universi ty of [facility] BMI 2021-08-16 17:19:00 40.10 kg/m2 Universi ty [facility] Oxygen saturation in 2021-08-16 17:19:00 97 /min [facility] Arterial blood by [facility] Pulse oximetry Branch Systolic blood 2019-12-03 16:05:00 153 mm[Hg] Univer sity of pressure [facility] Diastolic blood 2019-12-03 16:05:00 111 mm[Hg] Unive rsity of pressure [facility] Heart rate 2019-12-03 16:05:00 90 /min Universi ty of [facility] Body temperature 2019-12-03 16:05:00 37.06 Aleja Univ ersity [facility] Respiratory rate 2019-12-03 16:05:00 18 /min Univ ersity of [facility] Body height 2019-12-03 16:05:00 165.1 cm Universi ty of [facility] Body weight 2019-12-03 16:05:00 99.791 kg Universi ty of [facility] BMI 2019-12-03 16:05:00 36.61 kg/m2 Universi ty of [place] [facility] [place] Oxygen saturation in 2019-12-03 16:05:00 99 /min University of Arterial blood by [facility] Pulse oximetry Branch Systolic blood 2019-11-06 02:02:00 160 mm[Hg] Univer sity of pressure [place] [facility] Diastolic blood 2019-11-06 02:02:00 100 mm[Hg] Unive rsity of pressure [facility] Heart rate 2019-11-04 19:29:00 90 /min Universi ty of [facility] Body temperature 2019-11-04 19:29:00 36.78 Aleja Univ ersity of [facility] Body height 2019-11-04 19:29:00 162.6 cm Universi ty of [place] [facility] [place] Body weight 2019-11-04 19:29:00 106.595 kg Universi ty of [place] [facility] [place] BMI 2019-11-04 19:29:00 40.34 kg/m2 Universi ty of [facility] Oxygen saturation in 2019-11-04 19:29:00 96 /min University of Arterial blood by [facility] Pulse oximetry Branch Systolic blood 2019-11-03 00:13:00 170 mm[Hg] Univer sity of pressure [facility] Diastolic blood 2019-11-03 00:13:00 102 mm[Hg] Unive rsity of pressure [facility] Heart rate 2019-11-03 00:12:00 82 /min Universi ty of [place] [facility] [place] Body temperature 2019-11-03 00:12:00 37.33 Aleja Univ ersity of [facility] Respiratory rate 2019-11-03 00:12:00 18 /min Univ ersity of [facility] Body height 2019-11-03 00:12:00 162.6 cm Universi ty of [place] [facility] [place] Body weight 2019-11-03 00:12:00 107.502 kg Universi ty of [place] [facility] [place] BMI 2019-11-03 00:12:00 40.68 kg/m2 Universi ty of [facility] Oxygen saturation in 2019-11-03 00:12:00 97 /min University of Arterial blood by [facility] Pulse oximetry Branch Procedures Procedure Date / Time Performing Clinician Source Performed CBC WITH DIFF 2021-08-16 18:10:00 Purvi Pelletier [facility] GLYCOSYLATED HEMOGLOBIN 2021-08-16 18:10:00 Purvi Pelletier [facility] (A1C) [facility] URINALYSIS 2021-08-16 18:10:00 Purvi Pelletier [facility] [place] CONSENT/REFUSAL FOR 2021-08-16 17:08:23 Doctor Unassigned, No [facility] [place] [facility]AT[facility] XR ANKLE <3 VW RIGHT 2019-12-03 17:20:30 Jose Still [facility] XR FOOT <3 VW RIGHT 2019-12-03 17:20:30 Jose Still [facility] COMP. METABOLIC PANEL 2019-12-03 17:04:00 Jose Still [facility] ([id number]) [facility] CBC WITH DIFFERENTIAL 2019-12-03 17:04:00 Jose Still [facility] CONSENT/REFUSAL FOR 2019-12-03 15:51:32 [facility]assigned, [facility] THYROID STIMULATING 2019-11-04 20:02:00 Purvi Pelletier [facility] HORMONE [facility] COMP. METABOLIC PANEL 2019-11-04 20:02:00 Purvi Pelletier [facility] ([id number]) [facility] CBC WITH DIFFERENTIAL 2019-11-04 20:02:00 Purvi Pelletier [facility] GLYCOSYLATED HEMOGLOBIN 2019-11-04 20:02:00 Purvi Pelletier [facility] (A1C) [facility] ASSIGNMENT OF BENEFITS 2019-11-03 00:01:07 Doctor Unassigned, No [facility] Encounters Start End Encounter Admission Attending Care Care Encounter Source Date/Time Date/Time Type Type Clinicians Facility Department ID 2021-12-26 2021-12-26 Outpatient R DANI [facility] [id number] Univers 14:30:00 14:30:00 ADOLFO [id number] [facility] 2021-12-13 2021-12-13 Outpatient R UMER [facility] [id number] Univers 16:30:00 16:30:00 PURVI [id number] [facility] 2021-12-132021-12-13 Outpatient R UMER, [facility] [id number] Univers 16:30:00 16:30:00 PURVI itfredy [facility] 2021-08-25 2021-08-25 [facility] [id number] Univers 00:00:00 00:00:00 Purvi A HEALTH [id number] i ty of [place] 4.2.7.2.686 Kyler as SIMONE?BLEA [id number] [address] MEDICAL OFFICE [facility] 2021-08-21 2021-08-21 Telephone [facility] [id number] Univers 00:00:00 00:00:00 Purvi A HEALTH [id number] i ty of [place] 4.2.7.2.686 Kyler as SIMONE?BLEA [id number] [address] OFFICE [facility] 2021-08-16 2021-08-16 Senior Security Architect Lab, Ang - Db [facility] [id number] Univers 11:53:34 12:08:34 Visit Purvi Peleltier HEALTH [id number] ity of [place] 4.2.7.2.686 Kyler as SIMONE?BLEA [id number] [address] OFFICE [facility] 2021-08-16 2021-08-16 Outpatient R UMER, [facility] [id number] Univers 12:00:00 12:00:00 PURVI [id number] itfredy [facility] 2021-08-16 2021-08-16 Office [facility] [id number] Univers 11:11:26 11:52:08 Visit Purvi Vanegas HEALTH [id number] i ty of [place] 4.2.7.2.686 Kyler as SIMONE?BLEA [id number] [address] OFFICE [facility] 2021-08-16 2021-08-16 Outpatient R UMER, [facility] [id number] Univers 11:00:00 11:52:08 PURVI laird [facility] 2021-08-16 2021-08-16 Orders Doctor ADOLFO [id number] Univers 00:00:00 00:00:00 Only Unassigned, FADUMO 350.1.13.10 ity of [place] [facility] 4.2.7.2.686 Kyler as [id number] [address] 2020-03-22 2020-03-22 Outpatient R [facility] [id number] Univers 08:20:00 08:20:00 [id number] ity of [facility] 2020-03-22 2020-03-22 Outpatient R [facility] [id number] Univers 08:20:00 08:20:00 ity of [facility] 2019-12-16 2019-12-16 Outpatient C CRISPIN, [facility] [id number] 04:25:00 07:00[facility] 2019-12-07 2019-12-07 [facility] [id number] Univers 14:20:00 14:20:00 JOO [id number] ity o f [facility] 2019-12-03 2019-12-03 Emergency Jose Still [facility] [id number] Univers 10:08:15 12:18:00 Triny Pham 350.1.13.10 i ty of [place] 4.2.7.2.686 [facility] [id number] [facility] [address] [place] 2019-12-03 2019-12-03 Emergency X Jose STILL [facility] ERT [id number] Univers 10:08:15 12:18:00 ity of [facility] 2019-12-03 2019-12-03 Orders Doctor MATA [id number] Univers 00:00:00 00:00:00 Only Unassigned, FADUMO 350.1.13.10 ity of [place] [facility] 4.2.7.2.686 Kyler as [id number] [address] 2019-11-04 2019-11-04 Office [facility] [id number] Univers 13:20:30 14:06:30 Visit Purvi Ornelas 350.1.13.10 i ty of [place] 4.2.7.2.686 Kyler as Professio [id number] Me dical nal [address] 2019-11-02 2019-11-02 Urgent Linda Huang [facility] 1.2.840. [id number] Univers 18:07:32 19:04:55 Care Unknown, Attending Health 350.1.13.10 ity of Surgical 4.2.7.2.686 Kyler as Specialti [phone] Me dical es [address] [place] 2019-11-02 2019-11-02 Orders Doctor ADOLFO [id number] Univers 00:00:00 00:00:00 Only Unassigned, FADUMO 350.1.13.10 ity of [place] [facility] 4.2.7.2.686 Kyler as [id number] [address] Results Test Description Test Time Test Comments Results Result Comments Source GLYCOSYLATED HEMOGLOBIN (A1C) 2021-08-16 22:05:32 Test Item Value Reference Range Interpretation Comme nts HGB A1C (test code = 4548-4) 5.7 % 4.0-5.7 RODNEY (test code = RODNEY) Reference RangesNormal: <5.7%Prediabetes: 5.7 - 6.4%Diabetes: > 6.5% Lab Interpretation (test code = Normal 10097-2) [facility] WITH [id number] 21:30:03 Test Item Value Reference Range Interpretation Comments WBC (test code = See_Comment H [Automated 6189-2) message] The system which generated this result transmit kaleb reference range : 4.20 - 10.70 10*3/?L. The reference range was not used to interpret this result as normal/abnormal . RBC (test code = See_Comment [Automated 659-8) message] The system which generated this result transmit kaleb reference range : 4.26 - 5.52 10*6/?L. The reference range was not used to interpret this result as normal/abnormal . HGB (test code = 16.3 g/dL 12.2-16.4 718-7) HCT (test code = 48.7 % 38.4-49.3 4544-3) MCV (test code = 88.5 fL 81.7-95.6 787-2) MCH (test code = 29.6 pg 26.1-32.7 785-6) MCHC (test code = 33.5 g/dL 31.2-35.0 786-4) RDW-SD (test code = 39.9 fL 38.5-51.6 35487-3) RDW-CV (test code = 12.3 % 12.1-15.4 788-0) PLT (test code = See_Comment [Automated 777-3) message] The system which generated this result transmit kaleb reference range : 150 - 328 10*3/ ?L. The reference range was not u sed to interpret th is result as normal/abnormal . MPV (test code = 11.6 fL 9.8-13.0 23071-7) NRBC/100 WBC (test See_Comment [Automat ed code = 3711563227) message] The system which generated this result transmit kaleb reference range : 0.0 - 10.0 /100 WBCs. The reference range was not used to interpret this result as normal/abnormal . NRBC x10^3 (test code <0.01 See_Comment [Auto mated = 9752647373) message] The system which generated this result transmit kaleb reference range : 10*3/?L. The reference range was not used to interpret this result as normal/abnormal . GRAN MAT (NEUT) % 80.7 % (test code = 770-8) IMM GRAN % (test code 0.50 % = 6798621761) LYMPH % (test code = 12.7 % 736-9) MONO % (test code = 5.6 % 5905-5) EOS % (test code = 0.1 % 713-8) BASO % (test code = 0.4 % 706-2) GRAN MAT x10^3(ANC) 13.46 10*3/uL 1.99-6.95 H (test code = 0638829071) IMM GRAN x10^3 (test 0.09 10*3/uL 0.00-0.06 H code = 8659823816) LYMPH x10^3 (test code 2.11 10*3/uL 1.09-3.23 = 731-0) MONO x10^3 (test code 0.93 10*3/uL 0.36-1.02 = 742-7) EOS x10^3 (test code = <0.03 0.06-0.53 L 711-2) BASO x10^3 (test code 0.06 10*3/uL 0.01-0.09 = 704-7) Lab Interpretation Abnormal (test code = 09172-2) [facility] WITH [id number] 17:38:00 Test Item Value Reference Range Interpretation Comments [...] as normal/abnormal . HGB (test code = 17.3 g/dL 12.2-16.4 H 718-7) HCT (test code = 49.6 % 38.4-49.3 H 4544-3) MCV (test code = 85.4 fL 81.7-95.6 787-2) MCH (test code = 29.8 pg 26.1-32.7 785-6) MCHC (test code = 34.9 g/dL 31.2-35 786-4) RDW-SD (test code = 36.1 fL 38.5-51.6 L 71268-3) RDW-CV (test code = 11.8 % 12.1-15.4 L 788-0) PLT (test code = See_Comment [Automated 777-3) message] The sy stem which generated this result transmitted reference range : 150 - 328 10*3/ ?L. The reference r nadine was not used to interpret this result as normal/abnormal . MPV (test code = 10.9 fL 9.8-13 40531-1) NRBC/100 WBC (test See_Comment [Automat ed code = 3350857417) message] The system which generated this result transmitted reference range : 0.0 - 10.0 /100 WBCs. The refer ence range was not u sed to interpret th is result as normal/abnormal . NRBC x10^3 (test code <0.01 See_Comment [Auto mated = 2322050090) message] The s ystem which generated this result transmitted reference range : 10*3/?L. The reference range was not used to interpret this result as normal/abnormal . GRAN MAT (NEUT) % 52.1 % (test code = 770-8) IMM GRAN % (test code 0.30 % = 8350533926) LYMPH % (test code = 38.2 % 736-9) MONO % (test code = 5.8 % 5905-5) EOS % (test code = 3.0 % 713-8) BASO % (test code = 0.6 % 706-2) GRAN MAT x10^3(ANC) 4.13 10*3/uL 1.99-6.95 (test code = 4578977213) IMM GRAN x10^3 (test <0.03 0-0.06 code = 8742211848) LYMPH x10^3 (test code 3.03 10*3/uL 1.09-3.23 = 731-0) MONO x10^3 (test code 0.46 10*3/uL 0.36-1.02 = 742-7) EOS x10^3 (test code = 0.24 10*3/uL 0.06-0.53 711-2) BASO x10^3 (test code 0.05 10*3/uL 0.01-0.09 = 704-7) Lab Interpretation Abnormal (test code = 32177-5) [facility]42[facility]2019-12-03 17:33:00 Test Item Value Reference Range Interpretation Comments NA (test code = 141 mmol/L 135-145 1029655670) K (test code = 4.2 mmol/L 3.5-5 9531845397) CL (test code = 104 mmol/L 98-108 7359962646) CO2 TOTAL (test code = 26 mmol/L 23-31 4104882683) AGAP (test code = 2-16 1366436882) BUN (test code = 20 mg/dL 7-23 8785581330) GLUCOSE (test code = 127 mg/dL 70-110 H 8741504704) CREATININE (test code = 1.16 mg/dL 0.6-1.25 6980925097) TOTAL BILI (test code = 0.3 mg/dL 0.1-1.7 7467779120) CALCIUM (test code = 9.5 mg/dL 8.6-10.6 0077481403) T PROTEIN (test code = 8.3 g/dL 6.3-8.2 H 4863872452) ALBUMIN (test code = 4.8 g/dL 3.5-5 0430128909) ALK PHOS (test code = 96 U/L 34-122 2770225372) ALTv (test code = 53 U/L 5-50 H 1742-6) AST(SGOT) (test code = 36 U/L 13-40 2058117333) eGFR Calculation mL/min/1.73m2 (Non-) (test code = 8288452288) eGFR Calculation mL/min/1.73m2 () (test code = 4840551384) RODNEY (test code = RODNEY) Association of [...] tests). Lab Interpretation Abnormal (test code = 52668-3) [facility] <3 VW [id number] 17:28:55 Soft tissue swelling without an acute [...] congruent.IMPRESSIONSoft tissue swelling without an acute bony abnormality.[facility] ANKLE <3 VW [id number] 17:28:55 Soft tissue swelling without an acute [...] congruent.IMPRESSIONSoft tissue swelling without an acute bony abnormality.[facility]ONE 2019-11-04 23:16:00 Test Item Value Reference Range Interpretation Comments TSH (test code = See_Comment [Automated message] 0886002477) The system [employer] generated this result transmitted ref erence range: 0.45 - 4 .70 mIU/L. The refe rence range was not u sed to interpret this result as normal/abnor mal. Lab Interpretation (test Normal code = 82328-9) [facility] [id number] 23:16:00 Test Item Value Reference Range Interpretation Comments TSH (test code = See_Comment [Automated message] 9856360881) The system [employer] generated this result transmitted ref erence range: 0.45 - 4 .70 mIU/L. The refe rence range was not u sed to interpret this result as normal/abnor mal. Lab Interpretation (test Normal code = 02004-8) [facility] (A1C)2019-11-04 23:15:00 Test Item Value Reference [...] Indicated Lab Interpretation Normal (test code = 73771-1) [facility]A1C)2019-11-04 23:15:00 Test Item Value Reference [...] Indicated Lab Interpretation Normal (test code = 66633-9) [facility] WITH [id number] 23:10:00 Test Item Value Reference Range Interpretation [...] RDW-SD (test code = 38.5 fL 38.5-51.6 13096-4) RDW-CV (test code = 12.1 % 12.1-15.4 788-0) PLT (test code = See_Comment [Automated 777-3) message] The sy stem which generated this result transmitted reference range : 150 - 328 10*3/ ?L. The reference r nadine was not used to interpret this result as normal/abnormal . MPV (test code = 11.6 fL 9.8-13 95956-8) NRBC/100 WBC (test See_Comment [Automat ed code = 3911429865) message] The system which generated this result transmitted reference range : 0.0 - 10.0 /100 WBCs. The refer ence range was not u sed to interpret th is result as normal/abnormal . NRBC x10^3 (test code <0.01 See_Comment [Auto mated = 0692754829) message] The s ystem which generated this result transmitted reference range : 10*3/?L. The reference range was not used to interpret this result as normal/abnormal . GRAN MAT (NEUT) % 50.7 % (test code = 770-8) IMM GRAN % (test code 0.20 % = 1052200239) LYMPH % (test code = 41.8 % 736-9) MONO % (test code = 4.5 % 5905-5) EOS % (test code = 2.1 % 713-8) BASO % (test code = 0.7 % 706-2) GRAN MAT x10^3(ANC) 4.40 10*3/uL 1.99-6.95 (test code = 9405341468) IMM GRAN x10^3 (test <0.03 0-0.06 code = 0834566876) LYMPH x10^3 (test code 3.63 10*3/uL 1.09-3.23 H = 731-0) MONO x10^3 (test code 0.39 10*3/uL 0.36-1.02 = 742-7) EOS x10^3 (test code = 0.18 10*3/uL 0.06-0.53 711-2) BASO x10^3 (test code 0.06 10*3/uL 0.01-0.09 = 704-7) Lab Interpretation Abnormal (test code = 30653-3) [facility] WITH [id number] 23:10:00 Test Item Value Reference Range Interpretation Comments WBC (test code = See_Comment [Automated 9990-2) message] The sy stem which generated this result transmitted reference range : 4.20 - 10.70 10*3/?L. The reference range was not used to interpret this result as normal/abnormal . RBC (test code = See_Comment H [Automated 129-8) message] The sy stem which generated this [...] RDW-SD (test code = 38.5 fL 38.5-51.6 07146-8) RDW-CV (test code = 12.1 % 12.1-15.4 788-0) PLT (test code = See_Comment [Automated 777-3) message] The sy stem which generated this result transmitted reference range : 150 - 328 10*3/ ?L. The reference r nadine was not used to interpret this result as normal/abnormal . MPV (test code = 11.6 fL 9.8-13 19437-7) NRBC/100 WBC (test See_Comment [Automat ed code = 8167967272) message] The system which generated this result transmitted reference range : 0.0 - 10.0 /100 WBCs. The refer ence range was not u sed to interpret th is result as normal/abnormal . NRBC x10^3 (test code <0.01 See_Comment [Auto mated = 8135196989) message] The s ystem which generated this result transmitted reference range : 10*3/?L. The reference range was not used to interpret this result as normal/abnormal . GRAN MAT (NEUT) % 50.7 % (test code = 770-8) IMM GRAN % (test code 0.20 % = 5581995267) LYMPH % (test code = 41.8 % 736-9) MONO % (test code = 4.5 % 5905-5) EOS % (test code = 2.1 % 713-8) BASO % (test code = 0.7 % 706-2) GRAN MAT x10^3(ANC) 4.40 10*3/uL 1.99-6.95 (test code = 7350804644) IMM GRAN x10^3 (test <0.03 0-0.06 code = 1862443605) LYMPH x10^3 (test code 3.63 10*3/uL 1.09-3.23 H = 731-0) MONO x10^3 (test code 0.39 10*3/uL 0.36-1.02 = 742-7) EOS x10^3 (test code = 0.18 10*3/uL 0.06-0.53 711-2) BASO x10^3 (test code 0.06 10*3/uL 0.01-0.09 = 704-7) Lab Interpretation Abnormal (test code = 41859-7) [facility]. METABOLIC PANEL ([id number])2019-11-04 22:46:00 Test Item Value Reference Range Interpretation Comments NA (test code = 142 mmol/L 135-145 4151996544) K (test code = 4.4 mmol/L 3.5-5 2440300774) CL (test code = 103 mmol/L 98-108 4763161493) CO2 TOTAL (test code = 30 mmol/L 23-31 8878813451) AGAP (test code = 2-16 0740099418) BUN (test code = 23 mg/dL 7-23 7808246826) GLUCOSE (test code = 105 mg/dL 70-110 9378192598) CREATININE (test code = 1.21 mg/dL 0.6-1.25 4943631924) TOTAL BILI (test code = 0.7 mg/dL 0.1-1.8 1174283757) CALCIUM (test code = 10.1 mg/dL 8.6-10.6 8159216078) T PROTEIN (test code = 7.6 g/dL 6.3-8.2 0780396341) ALBUMIN (test code = 4.8 g/dL 3.5-5 3706491983) ALK PHOS (test code = 86 U/L 34-122 8402970996) ALTv (test code = 69 U/L 5-50 H 1742-6) AST(SGOT) (test code = 49 U/L 13-40 H 7166167838) eGFR Calculation mL/min/1.73m2 (Non-) (test code = 4137840256) eGFR Calculation mL/min/1.73m2 () (test code = 8435877158) RODNEY (test code = RODNEY) Association of [...] tests). Lab Interpretation Abnormal (test code = 85104-1) [facility]. METABOLIC PANEL ([id number])2019-11-04 22:46:00 Test Item Value Reference Range Interpretation Comments NA (test code = 142 mmol/L 135-145 2485079406) K (test code = 4.4 mmol/L 3.5-5 3971873111) CL (test code = 103 mmol/L 98-108 5848015739) CO2 TOTAL (test code = 30 mmol/L 23-31 2354638136) AGAP (test code = 2-16 0836385902) BUN (test code = 23 mg/dL 7-23 7115755528) GLUCOSE (test code = 105 mg/dL 70-110 5697899771) CREATININE (test code = 1.21 mg/dL 0.6-1.25 6127535396) TOTAL BILI (test code = 0.7 mg/dL 0.1-1.2 5483209875) CALCIUM (test code = 10.1 mg/dL 8.6-10.6 8607030926) T PROTEIN (test code = 7.6 g/dL 6.3-8.2 5805732862) ALBUMIN (test code = 4.8 g/dL 3.5-5 2189610340) ALK PHOS (test code = 86 U/L 34-122 8117788093) ALTv (test code = 69 U/L 5-50 H 1742-6) AST(SGOT) (test code = 49 U/L 13-40 H 8974484842) eGFR Calculation mL/min/1.73m2 (Non-) (test code = 1126811931) eGFR Calculation mL/min/1.73m2 () (test code = 3087680427) RODNEY (test code = RODNEY) Association of [...] tests). Lab Interpretation Abnormal (test code = 75797-0) [facility]"
--- NOTE | 2021-09-01 21:25 | RAD REPORT ---
EXAM DESCRIPTION: RAD - Foot Left 3 View - 09/01/2021 9:08 pm CLINICAL HISTORY: PAIN COMPARISON: Ankle Left 3 View dated 09/01/2021 FINDINGS: AP and oblique views the left foot were obtained. Lateral view was not submitted. Lateral view from the ankle examination was reviewed. No fracture, dislocation or periosteal reaction. No acute or destructive bony process. No air or foreign body in the soft tissues. IMPRESSION: Negative left foot examination.
--- NOTE | 2021-09-01 21:26 | RAD REPORT ---
EXAM DESCRIPTION: RAD - Ankle Left 3 View - 09/01/2021 9:08 pm CLINICAL HISTORY: PAIN COMPARISON: No comparisons FINDINGS: No fracture, dislocation or periosteal reaction. No joint effusion seen. No joint space na rrowing. Soft tissues are mildly prominent with the baseline unknown. No plantar spur. No foreign bod y or calcification in the soft tissues. IMPRESSION: Negative left ankle for fracture or other acute finding.
--- NOTE | 2021-09-01 23:17 | EDPHYS ---
Physician Documentation [facility] Name: Abhinav Haines Age: 26 yrs Sex: Male : 1995 Arrival Date: 09/01/2021 Time: 20:00 Bed 11 Private MD: ED Physician Clay Calderón HPI: 09/01 22:47 This 26 yrs old Male presents to ER via Wheelchair with complaints of Left Ankle Pain. pm1 22:47 The patient presents with pain, that is acute, swelling. The complaints affect the left pm1 ankle. Onset: The symptoms/episode began/occurred 2 day(s) ago. Context: The problem was sustained outdoors, resulted from the patient stepping on uneven surface and rolled ankle The patient can partially bear weight on the affected extremity. the patient is able to ambulate, with moderate difficulty. Associated signs and symptoms: Pertinent positives: swelling, of the left ankle, Pertinent negatives: calf tenderness. Modifying factors: the symptoms are aggravated by weight bearing. Severity of symptoms: in the emergency department the symptoms are actually worse. The patient has not experienced similar symptoms in the past. The patient has not recently seen a physician. Historical: - Allergies: 20:46 No Known Allergies; vg1 - Home Meds: 20:46 "blood pressure" [Active]; vg1 - PMHx: 20:46 Hypertensive disorder; vg1 - PSHx: 20:46 Foot-Right; vg1 - Immunization history:: Client reports receiving the 2nd dose of the Covid vaccine. - Social history:: Smoking status: Patient denies any tobacco usage or history of. ROS: 22:47 Constitutional: Negative for fever, chills, and weight loss, Cardiovascular: Negative pm1 for chest pain, palpitations, and edema, Respiratory: Negative for shortness of breath, cough, wheezing, and pleuritic chest pain. 22:47 Skin: Negative for injury, rash, and discoloration, Neuro: Negative for headache, weakness, numbness, tingling, and seizure. 22:47 MS/extremity: Positive for pain, swelling, tenderness, of the left ankle, Negative for deformity. 22:47 All other systems are negative. Exam: 22:47 Constitutional: This is a well developed, well nourished patient who is awake, alert, pm1 and in no acute distress. Head/Face: Normocephalic, atraumatic. 22:47 Skin: Warm, dry with normal turgor. Normal color with no rashes, no lesions, and no evidence of cellulitis. 22:47 Cardiovascular: Exam negative for acute changes, Rate: normal, Rhythm: regular, Pulses: no pulse deficits are appreciated, Heart sounds: normal. 22:47 Respiratory: Exam negative for acute changes, respiratory distress, shortness of breath. 22:47 Musculoskeletal/extremity: Extremities: grossly normal except: noted in the left ankle: swelling, tenderness, Circulation is intact in all extremities. Pulses: noted to be 2+ in the left dorsalis pedis artery, the left foot Sensation intact. 22:47 Neuro: Exam negative for acute changes, Orientation: is normal, Mentation: is normal, Motor: is normal, moves all fours. Vital Signs: 20:41 BP 148 / 100; Pulse 114; Resp 18; Temp 99.0; Pulse Ox 100% ; Weight 68.04 kg; Height 5 vg1 ft. 5 in. (165.10 cm); Pain 5/10; 23:27 BP 160 / 107; Pulse 111; Resp 20; Pulse Ox 99% on R/A; lp1 20:41 Body Mass Index 24.96 (68.04 kg, 165.10 cm) vg1 MDM: 22:35 Data reviewed: vital signs. Data interpreted: Pulse oximetry: on room air is 100 %. pm1 Interpretation: normal. Counseling: I had a detailed discussion with the patient and/or guardian regarding: the historical points, exam findings, and any diagnostic results supporting the discharge/admit diagnosis, radiology results, the need for outpatient follow up, a orthopedic surgeon, to return to the emergency department if symptoms worsen or persist or if there are any questions or concerns that arise at home. 23:06 Patient medically screened. pm1 23:11 ED course: Patient not tolerating placement of Orthoglass stirrup and attempted to kick pm1 at freezer laboratory technician and myself as we were adjusting the splint. Patient attempted to kick at me during physical examination also. Incorrectly placed splint would risk foot drop. Will place Aircast splint on the patient and discharge with crutches. 09/01 20:50 Order name: Foot Left 3 View XRAY; Complete Time: 22:38 vg1 09/01 20:50 Order name: Ankle Left 3 View XRAY; Complete Time: 22:38 vg1 09/01 22:20 Order name: Crutches; Complete Time: 03:28 pm1 09/01 23:19 Order name: Aircast Ankle Splint; Complete Time: 00:07 pm1 Administered Medications: 23:20 Drug: HYDROcodone-acetaminophen 5 mg-325 mg 1 tabs Route: PO; lp1 09/02 00:07 Follow up: Response: No adverse reaction lp1 Disposition: 04:37 Co-signature as Attending Physician, Clay Calderón MD. 7 Disposition Summary: 09/01/21 23:16 Discharge Ordered Location: Home pm1 Problem: new pm1 Symptoms: have improved pm1 Condition: Stable pm1 Diagnosis - Sprain of unspecified ligament of left ankle pm1 Followup: pm1 - With: Emergency Department - When: As needed - Reason: Recheck today's complaints, Continuance of care, Re-evaluation by your physician Followup: pm1 - With: Private Physician - When: 2 - 3 days - Reason: Recheck today's complaints, Continuance of care, Re-evaluation by your physician Discharge Instructions: - Discharge Summary Sheet pm1 - Ankle Sprain pm1 - Crutch Use, Adult pm1 - Cast or Splint Care, Adult pm1 Forms: - Medication Reconciliation Form pm1 - Thank You Letter pm1 - Antibiotic Education pm1 - Prescription Opioid Use pm1 - Work release form lp1 Prescriptions: - Diclofenac Sodium 75 mg Oral tablet,delayed release (DR/EC) - take 1 tablet by ORAL route 2 times per day As needed; 30 tablet; Refills: 0, pm1 Product Selection Permitted Signatures: Dispatcher [employer] EDIrma Marino, RN RN lp1 Ariel Clemente NP FEATHER BALER pm1 Sparkle Bergeron RN RN 1 Clay Calderón MD MD [id number] Corrections: (The following items were deleted from the chart) 09/01 20:47 20:46 PSHx: foot surgery; vg1 vg1 22:39 22:20 Splint - Ankle: Aircast ordered. pm1 pm1 23:19 22:39 Splint - Ankle: Orthoglass: Stirrup ordered. pm1 pm1
--- NOTE | 2021-09-01 23:17 | ER ---
Nurse's Notes [facility] Name: Abhinav Haines Age: 26 yrs Sex: Male : 1995 Arrival Date: 09/01/2021 Time: 20:00 Bed 11 Private MD: Diagnosis: Sprain of unspecified ligament of left ankle Presentation: 09/01 20:41 Chief complaint: Patient states: Walking and stepped into a hole and Left ankle vg1 twisted; incident occurred Thursday08/30/21, states ankle and underneath big toe pain. States 'hurts to bear weight on left foot'. Coronavirus screen: Vaccine status: Patient reports receiving the 2nd dose of the covid vaccine. Client denies travel out of the [place] in the last 14 days. Ebola Screen: Patient negative for fever greater than or equal to 101.5 degrees Fahrenheit, and additional compatible Ebola Virus Disease symptoms. Initial Sepsis Screen: Does the patient meet any 2 criteria? HR > 90 bpm. Does the patient have a suspected source of infection? No. Patient's initial sepsis screen is negative. Risk Assessment: Do you want to hurt yourself or someone else?. Onset of symptoms was August 30, 2021. 20:41 Method Of Arrival: Wheelchair vg1 20:41 Acuity: JOAN 4 vg1 Triage Assessment: 20:41 General: Appears in no apparent distress. uncomfortable, Behavior is calm, cooperative. vg1 Pain: Complains of pain in left foot. 20:41 Musculoskeletal: Circulation, motion, and sensation intact. Range of motion: limited in vg1 left ankle Swelling present in left lateral malleolus. Historical: - Allergies: 20:46 No Known Allergies; vg1 - Home Meds: 20:46 "blood pressure" [Active]; vg1 - PMHx: 20:46 Hypertensive disorder; vg1 - PSHx: 20:46 Foot-Right; vg1 - Immunization history:: Client reports receiving the 2nd dose of the Covid vaccine. - Social history:: Smoking status: Patient denies any tobacco usage or history of. Screenin:27 Abuse screen: Denies threats or abuse. Denies injuries from another. Nutritional lp1 screening: No deficits noted. Tuberculosis screening: No symptoms or risk factors identified. Fall Risk None identified. Assessment: 23:00 General: Appears uncomfortable, Behavior is appropriate for age. Pain: Complains of lp1 pain in anterior aspect of left ankle Pain currently is 8 out of 10 on a pain scale. Quality of pain is described as aching. Neuro: Level of Consciousness is awake, alert, obeys commands, Oriented to person, place, time, situation, Intact. Cardiovascular: Patient's skin is warm and dry. Respiratory: Respiratory effort is even, unlabored. GI: No signs and/or symptoms were reported involving the gastrointestinal system. : No signs and/or symptoms were reported regarding the genitourinary system. EENT: No signs and/or symptoms were reported regarding the EENT system. Derm: Skin is pink, warm \\T\\ dry. Musculoskeletal: Swelling present in left ankle Tenderness present in left ankle Reports pain in left ankle. 23:15 Reassessment: Provider reports to change Orthoglass splint to aircast splint. lp1 09/02 00:07 Reassessment: Patient reports cannot tolerate aircast splint, MARYLOU wrap applied, reports lp1 cannot tolerate MARYLOU wrap. Vital Signs: 12 20:41 BP 148 / 100; Pulse 114; Resp 18; Temp 99.0; Pulse Ox 100% ; Weight 68.04 kg; Height 5 vg1 ft. 5 in. (165.10 cm); Pain 5/10; 23:27 BP 160 / 107; Pulse 111; Resp 20; Pulse Ox 99% on R/A; lp1 20:41 Body Mass Index 24.96 (68.04 kg, 165.10 cm) vg1 ED Course: 20:00 Patient arrived in ED. wm 20:41 Arm band placed on. vg1 20:46 Triage completed. vg1 21:08 Foot Left 3 View XRAY In Process Unspecified. EDMS 21:08 Ankle Left 3 View XRAY In Process Unspecified. EDMS 22:07 Ariel Clemente NP is PHCP. pm1 22:07 Clay Calderón MD is Attending Physician. pm1 22:59 Irma Sandoval, ANNA is Primary Nurse. lp1 23:27 Patient has correct armband on for positive identification. lp1 23:28 No provider procedures requiring assistance completed. lp1 23:35 Crutch training done. aircast applied on the left foot. oe 09/02 00:00 Patient did not have IV access during this emergency room visit. lp1 Administered Medications: 09/01 23:20 Drug: HYDROcodone-acetaminophen 5 mg-325 mg 1 tabs Route: PO; lp1 09/02 00:07 Follow up: Response: No adverse reaction lp1 Outcome: 09/01 23:16 Discharge ordered by . pm1 09/02 00:00 Discharged to home via wheelchair, with crutches, with family. lp1 Condition: stable Discharge instructions given to patient, Instructed on discharge instructions, follow up and referral plans. medication usage, crutch walking, Demonstrated understanding of instructions, follow-up care, medications, crutch walking, Prescriptions given X 1. 00:07 Patient left the ED. lp1 Signatures: Dispatcher [employer] EDMS Irma Sandoval RN RN lp1 Ariel Clemente, BUSINESS RULES DEVELOPER BUSINESS RULES DEVELOPER pm1 Torey Lo Victoria, RN RN vg1 Anitha Camilo Corrections: (The following items were deleted from the chart) 09/01 20:47 20:41 Pulse 114bpm; Resp 18bpm; Pulse Ox 100%; Temp 99.0F; 68.04 kg; Height 5 ft. 5 vg1 in.; BMI: 24.9; Pain 5/10; vg1 20:47 20:46 PSHx: foot surgery; vg1 vg1
[2021-09-01] MEDS ORDERED: HYDROCODONE/APAP 5/325 MG TAB ONE (23:20)
[2021-09-02 00:25] VITALS: TEMP 99
[2021-09-02 00:27] VITALS: BP 160/107; O2SAT 99
== END 2021-09-02 00:07 | disposition home or self-care (01) ==
LOC: ER 19:54
DX: S93.402A Sprain of unspecified ligament of left ankle, initial encounter (principal); I10 Essential (primary) hypertension
CPT/HCPCS: 99284